=== PATIENT | female | born 1940 | race Caucasian/White ===

== ENCOUNTER 2020-12-11 07:57 | Day surgery (SDC) | payer MEDICARE, OTHER ==
[~2020-12-11] VITALS: Ht 160 cm; Wt 105.0 kg
[~2020-12-11 07:57] MED LIST: AMLO10 PO; CLON.1 PO; Crestor20 MG PO; FURO40 PO; Fluocinonide15 G1 TP; IRBE150 PO; KETO15TC TOP; LIDO5TO TOP; METF500C PO; METO100ER PO; NORT10 PO; NYAMYC15 G2 TOP; TERA5 PO; Triamcinolone A15 G3 TOP; WARF3 PO
--- NOTE | 2020-12-11 12:16 | NUR ---
Pt received from Cindy Montoya RN pt arrived via recliner chair. She is droggy, however; responds to question approriately. 02 at 3 liters per n/c for o2 sat of 94%. Pt is semi reclined with call button within reach. Right radial site wnl pulse palpable. Pt B/p elevated she received medication prior to leaving lab. IV NS with 400 NS HECTOR infusing into left Forearm. FBS 104 in lab at 1143. Lunch will be ordered.
--- NOTE | 2020-12-11 13:45 | NUR ---
TR BAND DEFLATION STARTED. SITE APPEARS SOFT NON TENDER WITH NO BLEEDING OR OOZING NOTED. BAND REMAINS ON ARM, BOARD ON FOR SUPPORT. PT DENIES CP OR SOB. WILL CONTINUE TO MONITOR.
--- NOTE | 2020-12-11 14:36 | NUR ---
TR BAND OFF, RED CLOTH DOT DRESSING APPLIED. ARM BOARD REMAINS ON FOR SUPPORT. SITE SOFT NON TENDER WITH NO BLEEDING NOTED. PT VERBALIZED UNDERSTANDING OF D/C INSTRUCTIONS. PAPERWORK PROVIDED IN FOLDER. IV REMOVED FROM LFA WITH CATH INTACT, PRESSURE DRESSING APPLIED. SON CALLED FOR RIDE HOME.
--- NOTE | 2020-12-11 14:56 | NUR ---
B/p slightly elevated orders received from Dr. Cardoza orders faxed to pharmacy.
--- NOTE | 2020-12-11 15:27 | NUR ---
Pt discharged at 1525 via wheel chair. Informed son Adalberto of limitations of using right hand. Pt verbalized understanding that I gave her the afternoon dose of clonidin. Pt stable upon exit.
== END 2020-12-11 15:16 | disposition home or self-care (01) ==
LOC: MHTC 07:57
DX: R07.89 Other chest pain (principal); I25.10 Atherosclerotic heart disease of native coronary artery without angina pectoris; E11.65 Type 2 diabetes mellitus with hyperglycemia; R93.1 Abnormal findings on diagnostic imaging of heart and coronary circulation; I11.0 Hypertensive heart disease with heart failure; I50.9 Heart failure, unspecified; E78.5 Hyperlipidemia, unspecified; E66.9 Obesity, unspecified; Z86.718 Personal history of other venous thrombosis and embolism; Z79.01 Long term (current) use of anticoagulants; Z79.4 Long term (current) use of insulin; Z68.41 Body mass index [BMI] 40.0-44.9, adult
CPT/HCPCS: 76937; 82947; 85347; 93454; 93571; 93572; 99152; 99153; A9270; C1769; C1887; C1894; J0360; J1644; J2250; J3010; J7030; J7050; Q9967

== ENCOUNTER 2022-03-24 17:24 | Emergency (ER) | payer MEDICARE, OTHER ==
[~2022-03-24] VITALS: Ht 165.1 cm; Wt 103.0 kg
[2022-03-24 19:03] LABS: International Normalized Ratio 3.74
== END 2022-03-24 19:34 | disposition home or self-care (01) ==
LOC: ER 17:24
PROVIDERS: Physician Assistant
DX: S00.83XA Contusion of other part of head, initial encounter (principal); S60.221A Contusion of right hand, initial encounter; S90.31XA Contusion of right foot, initial encounter; S90.121A Contusion of right lesser toe(s) without damage to nail, initial encounter; S00.03XA Contusion of scalp, initial encounter; W18.30XA Fall on same level, unspecified, initial encounter; Z79.01 Long term (current) use of anticoagulants; Z79.899 Other long term (current) drug therapy
CPT/HCPCS: 70450; 73130; 73660; 85610

== ENCOUNTER 2022-04-22 02:12 | Inpatient (IN) | payer MEDICARE, OTHER ==
[~2022-04-22] VITALS: Ht 167.6 cm; Wt 101.9 kg
[~2022-04-22 02:12] MED LIST changes: +Hytrin1 MG PO; -TERA5 PO
[2022-04-22 02:53] LABS: BASOPHILS ABSOLUTE AUTO 0.07 K/mm3 (0.00-0.23); BASOPHILS PERCENT AUTO 0 % (0-2); EOSINOPHILS ABSOLUTE AUTO 0.33 K/mm3 (0.00-0.68); EOSINOPHILS PERCENT AUTO 2 % (0-6); Hematocrit 48.1 % (33.0-51.0); Hemoglobin 15.4 g/dL (11.5-16.0); IMMATURE GRAN ABSOLUTE AUTO 0.07 K/mm3 (0.00-0.10); IMMATURE GRAN PERCENT AUTO 0 % (0-1); LYMPHOCYTES ABSOLUTE AUTO 3.71 K/mm3 (0.84-5.20); LYMPHOCYTES PERCENT AUTO 24 % (21-46); MONOCYTES ABSOLUTE AUTO 0.92 K/mm3 (0.16-1.47); MONOCYTES PERCENT AUTO 6 % (4-13); Mean Corpuscular HGB 28.6 pg (26.0-34.0); Mean Corpuscular Volume 89 fL (80-100); NEUTROPHILS ABSOLUTE AUTO 10.69 K/mm3 (1.96-9.15); NEUTROPHILS PERCENT AUTO 68 % (41-73); Platelet Count 193 K/mm3 (150-400); RDW Coefficient Variation 13.7 % (11.7-14.2); RDW Standard Deviation 44.7 fL (35.1-46.3); Red Blood Cell Count 5.39 M/mm3 (3.80-5.20); White Blood Cell Count 15.79 K/mm3 (4.00-11.30)
[2022-04-22 03:11] LABS: Magnesium, Blood 2.4 mg/dL (1.6-2.4)
[2022-04-22 03:12] LABS: Albumin, Blood 4.1 g/dL (3.4-5.0); Albumin/Globulin Ratio 0.9 (0.8-1.8); Bilirubin, Total 0.5 mg/dL (0.1-1.0); Bun/Creatinine Ratio 17.2 (12.0-20.0); Creatinine, Blood 0.87 mg/dL (0.40-1.00); Globulin, Blood 4.6 g/dL (2.2-4.0); Total Protein, Blood 8.7 g/dL (6.4-8.2)
[2022-04-22 03:18] LABS: Base Excess Venous -5.8 mmol/L; Bicarbonate Venous 19.3 mmol/L (24.0-30.0); PCO2 Venous 47.8 mmHg (38-42); pH Blood Venous 7.26 (7.34-7.37)
[2022-04-22 03:30] LABS: Influenza A, PCR NEGATIVE (NEGATIVE); Influenza B, PCR NEGATIVE (NEGATIVE); Resp Syncytial Virus, PCR NEGATIVE (NEGATIVE); SARS-Cov-2 (COVID-19) PCR, MMC NEGATIVE (NEGATIVE)
[2022-04-22 03:41] LABS: International Normalized Ratio 0.99; Prothrombin Time Results 10.4 Sec (9.7-11.5)
[2022-04-22 06:42] LABS: Bun/Creatinine Ratio 20.4 (12.0-20.0); Calcium, Blood 8.2 mg/dL (8.5-10.1); Creatinine, Blood 0.79 mg/dL (0.40-1.00); Potassium, Blood 4.4 mmol/L (3.5-5.5)
[2022-04-22 07:12] LABS: Base Excess Venous -1.7 mmol/L; Bicarbonate Venous 23.3 mmol/L (24.0-30.0); PCO2 Venous 36.9 mmHg (38-42)
[2022-04-22 07:21] LABS: BASOPHILS ABSOLUTE AUTO 0.03 K/mm3 (0.00-0.23); BASOPHILS PERCENT AUTO 0 % (0-2); EOSINOPHILS ABSOLUTE AUTO 0.01 K/mm3 (0.00-0.68); EOSINOPHILS PERCENT AUTO 0 % (0-6); Hematocrit 41.5 % (33.0-51.0); Hemoglobin 13.6 g/dL (11.5-16.0); IMMATURE GRAN ABSOLUTE AUTO 0.08 K/mm3 (0.00-0.10); IMMATURE GRAN PERCENT AUTO 1 % (0-1); LYMPHOCYTES ABSOLUTE AUTO 0.68 K/mm3 (0.84-5.20); LYMPHOCYTES PERCENT AUTO 5 % (21-46); MONOCYTES PERCENT AUTO 8 % (4-13); Mean Corpuscular HGB 28.3 pg (26.0-34.0); Mean Corpuscular HGB Conc 32.8 g/dL (31.5-36.5); Mean Corpuscular Volume 87 fL (80-100); NEUTROPHILS ABSOLUTE AUTO 11.23 K/mm3 (1.96-9.15); NEUTROPHILS PERCENT AUTO 86 % (41-73); RDW Coefficient Variation 13.5 % (11.7-14.2); RDW Standard Deviation 42.3 fL (35.1-46.3); White Blood Cell Count 13.03 K/mm3 (4.00-11.30)
[2022-04-22 08:07] LABS: Source, Urine Clean Catch
[2022-04-22 08:11] LABS: Appearance, Urine Clear (Clear); Bilirubin, Urine Neg (Neg); Blood, Urine Neg (Neg); Color, Urine Yellow (P-Yellow); Glucose Qualitative, Urine Neg (Neg); Ketones, Urine Neg (Neg); Leukocyte Esterase, Urine Neg (Neg); Nitrite, Urine Neg (Neg); Protein, Urine 1+ (Neg); Specific Gravity, Urine 1.015 (1.003-1.022); Urobilinogen, Urine NORM (Normal)
[2022-04-22] MEDS ORDERED: Isosorbide Mono30 MG PO (10:40)
[2022-04-22] MEDS ORDERED: BASAGLAR K100 UNIT/3 SC (10:41)
[2022-04-22] MEDS ORDERED: GLIP10ER PO (10:42)
[2022-04-22] MEDS ORDERED: MINO10 PO (10:43)
--- NOTE | 2022-04-22 18:11 | NUR ---
Admit Note Received report from ed. Pt to room at approx 0745, 4 person assist with slider sheet. Love catheter placed, ua sent. Pt alert, oriented to person, place and date/time. Pt on bipap on arrival 09/10 70% fio2 bur 10, titrated fio2 to 50%. Placed on 5l o2 via nc this am, for medications and meals, titrated down t/o shift to 2l o2 via nc, ls diminished t/o, tachypnic at times. Tele sinus rhythm 60, bp elevated trending down t/o shift. Edema noted to ble. Abd moderately distended, tender with hypoactive bt t/o, pt reports passing gas, midline scar noted. Other vss t/o, afebrile. Updated given to son's t/o shift. Bruising noted under both eyes, pt states she ran into a door about a month ago which caused the bruising. No other acute changes noted. Will continue to monitor.
--- NOTE | 2022-04-23 06:19 | NUR ---
SHIFT SUMMARY PT ALERT AND ORIENTED. ON 2L OXYGEN SATS OVER 97%. BP STABLE. HR SB/SR 50-60'S W/ BBB. ATTEMPTED BIPAP WHILE SLEEPING. PT ONLY ABLE TO TOLERATE FOR LESS THAN [address] DRAINING [place] COLORED URINE TO GRAVITY. NO C/O DISCOMFORT OR PAIN. IN BED RESTING WITH CALL ALARM AT SIDE, WILL CONTINUE TO MONITOR UNTIL REPORT GIVEN TO DAYSHIFT RN
[2022-04-23 08:32] LABS: Hematocrit 40.5 % (33.0-51.0); Hemoglobin 13.4 g/dL (11.5-16.0); Mean Corpuscular HGB 28.9 pg (26.0-34.0); Mean Corpuscular HGB Conc 33.1 g/dL (31.5-36.5); Mean Corpuscular Volume 88 fL (80-100); Mean Platelet Volume 9.7 fL (9.1-12.4); Platelet Count 194 K/mm3 (150-400); RDW Coefficient Variation 13.8 % (11.7-14.2); RDW Standard Deviation 44.2 fL (35.1-46.3); Red Blood Cell Count 4.63 M/mm3 (3.80-5.20)
[2022-04-23 09:08] LABS: Albumin, Blood 3.5 g/dL (3.4-5.0); Albumin/Globulin Ratio 0.9 (0.8-1.8); Bun/Creatinine Ratio 25.5 (12.0-20.0); Calcium, Blood 9.1 mg/dL (8.5-10.1); Creatinine, Blood 0.82 mg/dL (0.40-1.00); Potassium, Blood 3.7 mmol/L (3.5-5.5); Total Protein, Blood 7.5 g/dL (6.4-8.2)
--- NOTE | 2022-04-23 11:53 | NUR ---
Spiritual care visit conducted. Pt's son and dtr-in-law are present. Pt is tearful at times as she processes the recent news of the of her other son. 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 Pt is greving appropriately and takes time to tell about him and the events that led to his . I provide empathic listeing, grief support and a calming presence to pt and family. All respond well to interventions given and show signs of being comforted.
--- NOTE | 2022-04-23 18:04 | NUR ---
PT REMAINS ON 2L VIA NASAL CANNULA T/O THE DAY WHICH IS TOLERATED WELL. PT WAS ABLE TO WORK WITH PHYSICAL THERAPY TODAY W/O DIFFICULTY. PT REPORTS SOME IMPROVEMENT IN WORK OF BREATHING TODAY. PT ABLE TO TALK IN FULL SENTENCES. VSS. FAMILY WAS IN AND UPDATED HER ABOUT HER SON'S PASSING WHICH WENT WELL. PT WAS MADE MEDICAL STATUS WITH OUT TELE. PT DENIES ANY CHEST PAIN. FAMILY HAS BEEN UPDATED T/O THE DAY. PT WITH GOOD APPETITE. A/O X3. NO FURTHER ACUTE CHANES TO NOTE FOR THIS SHIFT
[2022-04-24 04:05] LABS: Hematocrit 37.4 % (33.0-51.0); Hemoglobin 12.2 g/dL (11.5-16.0); Mean Corpuscular HGB 28.8 pg (26.0-34.0); Mean Corpuscular HGB Conc 32.6 g/dL (31.5-36.5); Mean Corpuscular Volume 88 fL (80-100); Mean Platelet Volume 10.2 fL (9.1-12.4); Platelet Count 184 K/mm3 (150-400); RDW Coefficient Variation 13.6 % (11.7-14.2); RDW Standard Deviation 44.2 fL (35.1-46.3); Red Blood Cell Count 4.24 M/mm3 (3.80-5.20); White Blood Cell Count 6.68 K/mm3 (4.00-11.30)
[2022-04-24 04:30] LABS: Albumin, Blood 3.1 g/dL (3.4-5.0); Albumin/Globulin Ratio 0.9 (0.8-1.8); Bun/Creatinine Ratio 26.8 (12.0-20.0); Calcium, Blood 8.7 mg/dL (8.5-10.1); Creatinine, Blood 0.78 mg/dL (0.40-1.00); Globulin, Blood 3.6 g/dL (2.2-4.0); Potassium, Blood 3.5 mmol/L (3.5-5.5); Total Protein, Blood 6.7 g/dL (6.4-8.2)
--- NOTE | 2022-04-24 05:39 | NUR ---
SHIFT SUMMARY PT ALERT AND ORIENTED X4. BP STABLE. ON 2L SATS OVER 95%. MED NO TELE STATUS. HR 50'S. ASLEEP MOST OF NIGHT. DENIES PAIN OR DISCOMFORT. IN BED SLEEPING WITH CALL ALARM AT SIDE, WILL CONTINUE TO MONITOR UNTIL REPORT GIVEN TO DAYSHIFT RN
--- NOTE | 2022-04-24 18:03 | NUR ---
pt resting in bed, watching tv, denies any complaints or needs, no acute changes this shift. call light in reach.
--- NOTE | 2022-04-25 04:04 | NUR ---
A&0X4. V/S WNL. 02 @ 2LPM VIA NC PER RT. PT'S BP INCREASED/CHANGED TO CORRECT HTN. ADA DIET. EVA AC&MEHDI. BS: 237. 2-ASSIST WITH FWW & GB. GUZMAN CATH IN SITU AND DRAINING LARGE AMOUNTS OF [place] URINE. NO BM THIS SHIFT. WILL CONTINUE TO MONITOR.
[2022-04-25 05:41] LABS: Hematocrit 37.1 % (33.0-51.0); Hemoglobin 12.2 g/dL (11.5-16.0); Mean Corpuscular HGB 28.5 pg (26.0-34.0); Mean Corpuscular HGB Conc 32.9 g/dL (31.5-36.5); Mean Corpuscular Volume 87 fL (80-100); Mean Platelet Volume 10.8 fL (9.1-12.4); Platelet Count 186 K/mm3 (150-400); RDW Coefficient Variation 13.5 % (11.7-14.2); RDW Standard Deviation 42.5 fL (35.1-46.3); Red Blood Cell Count 4.28 M/mm3 (3.80-5.20); White Blood Cell Count 6.44 K/mm3 (4.00-11.30)
[2022-04-25 06:08] LABS: Bun/Creatinine Ratio 32.1 (12.0-20.0); Calcium, Blood 9.3 mg/dL (8.5-10.1); Creatinine, Blood 0.62 mg/dL (0.40-1.00); Potassium, Blood 3.7 mmol/L (3.5-5.5)
--- NOTE | 2022-04-25 08:00 | NUR ---
pt sitting up on the side of the bed eating breakfast, a/ox3, pleasant and cooperative with care, follows commands well, denies pain, lungs are dim t/o, on r/a at this time sats are 93%, no cough noted, resp even and unlabored, hrr, no edema noted, ppp+1, cap refill<3sec, vs stable, afebrile, iv site to lac is clear and patent, btx4, abd flat soft nontender, voids via lehman cath at this time, skin c/w/d, does have bruising around both eyes secondary to a fall at home, nathalie cesar, call light in reach.
--- NOTE | 2022-04-25 09:51 | NUR ---
will hold metoprolol this am per Dr. Salazar due to heart rate running in the high 50s. will be discharged to home today. call light in reach.
[2022-04-25] MEDS ORDERED: METO25 PO (10:24)
--- NOTE | 2022-04-25 14:39 | NUR ---
Pt has been discharged to home, went over discharge instructions with her, she verbalized understanding, iv's removed intact, new meds faxed to pharmacy. left with all her belongings via wheelchair with lecturer of portuguese in attendence.
== END 2022-04-25 14:37 | disposition home or self-care (01) | DRG 291 ==
LOC: ER 02:12 → PCU 05:12 → ERHOLD 05:12 → PCU 07:51 → MEDS 04-24 15:00
PROVIDERS: Emergency Medicine; Family Medicine; Internal Medicine; ADMIT Family Medicine
PROC: 5A09357 Assistance with Respiratory Ventilation, Less than 24 Consecutive Hours, Continuous Positive Airway Pressure (ICD-10-PCS; principal; 2022-04-22)
DX: I11.0 Hypertensive heart disease with heart failure (principal); I50.23 Acute on chronic systolic (congestive) heart failure; J96.01 Acute respiratory failure with hypoxia; J96.02 Acute respiratory failure with hypercapnia; E87.2 Acidosis; I16.1 Hypertensive emergency; Z20.822 Contact with and (suspected) exposure to COVID-19; I51.81 Takotsubo syndrome; D72.828 Other elevated white blood cell count; E11.9 Type 2 diabetes mellitus without complications; E66.9 Obesity, unspecified; I25.10 Atherosclerotic heart disease of native coronary artery without angina pectoris; R00.1 Bradycardia, unspecified; T44.7X5A Adverse effect of beta-adrenoreceptor antagonists, initial encounter; Z68.36 Body mass index [BMI] 36.0-36.9, adult; Z91.14 Patient's other noncompliance with medication regimen; Z79.4 Long term (current) use of insulin; Z79.899 Other long term (current) drug therapy
CPT/HCPCS: 0241U; 36415; 71045; 80048; 80053; 82803; 82947; 83605; 83735; 83880; 84145; 84484; 85025; 85027; 85610; 87040; 93005; 93010; 93306; 94660; 94760; 94761; 94762; 96365; 96368; 96375; 97110; 97116; 97162; 99291-25; A9270; J1650; J1815; J1940; J2060; J3475

== ENCOUNTER 2023-04-21 13:16 | Inpatient (IN) | payer MEDICARE, OTHER ==
[~2023-04-21] VITALS: Ht 160 cm; Wt 98.2 kg
[~2023-04-21 13:16] MED LIST changes: +BASAGLAR K100 UNIT/3 SC; +GLIP10ER PO; +Isosorbide Mono30 MG PO; +METO25 PO; +MINO10 PO
[2023-04-21 13:35] LABS: Calcium, Ionized (POC) 1.22 mmol/L (1.10-1.46); Chloride (POC) 110 mmol/L (98-108); Creatinine (POC) 1.2 mg/dL (0.6-1.0); Glucose (ISTAT POC) 364 mg/dL (70-99); Potassium (POC) 4.9 mmol/L (3.5-5.5); Sodium (POC) 139 mmol/L (135-148); Total CO2 (POC) 16 mmol/L (21-32)
[2023-04-21 13:42] LABS: BASOPHILS ABSOLUTE AUTO 0.04 K/mm3 (0.00-0.23); BASOPHILS PERCENT AUTO 0 % (0-2); EOSINOPHILS PERCENT AUTO 0 % (0-6); Hematocrit 42.9 % (33.0-51.0); IMMATURE GRAN ABSOLUTE AUTO 0.13 K/mm3 (0.00-0.10); IMMATURE GRAN PERCENT AUTO 1 % (0-1); LYMPHOCYTES ABSOLUTE AUTO 2.16 K/mm3 (0.84-5.20); LYMPHOCYTES PERCENT AUTO 12 % (21-46); MONOCYTES ABSOLUTE AUTO 1.32 K/mm3 (0.16-1.47); MONOCYTES PERCENT AUTO 7 % (4-13); Mean Corpuscular HGB 28.2 pg (26.0-34.0); Mean Corpuscular HGB Conc 32.6 g/dL (31.5-36.5); Mean Corpuscular Volume 87 fL (80-100); Mean Platelet Volume 10.2 fL (9.1-12.4); NEUTROPHILS ABSOLUTE AUTO 15.14 K/mm3 (1.96-9.15); NEUTROPHILS PERCENT AUTO 81 % (41-73); Platelet Count 270 K/mm3 (150-400); RDW Coefficient Variation 13.7 % (11.7-14.2); RDW Standard Deviation 42.6 fL (35.1-46.3); Red Blood Cell Count 4.96 M/mm3 (3.80-5.20); White Blood Cell Count 18.79 K/mm3 (4.00-11.30)
[2023-04-21 14:36] LABS: Alanine Aminotransfer (ALT/SGP 39 U/L (12-78); Albumin, Blood 3.5 g/dL (3.4-5.0); Albumin/Globulin Ratio 0.8 (0.8-1.8); Alk Phos 76 U/L (50-136); Anion Gap 13 mmol/L (6-16); Aspartate Aminotrans (AST/SGOT 30 U/L (12-37); Bilirubin, Total 0.4 mg/dL (0.1-1.0); Blood Urea Nitrogen 26 mg/dL (8-24); CO2, Blood 16 mmol/L (21-32); Chloride, Blood 111 mmol/L (98-108); Creatinine, Blood 1.13 mg/dL (0.40-1.00); Globulin, Blood 4.3 g/dL (2.2-4.0); Glomerular Filtration Rate 49 (60-); Glucose, Blood 365 mg/dL (70-99); Sodium, Blood 140 mmol/L (136-145); Total Protein, Blood 7.8 g/dL (6.4-8.2)
[2023-04-21 16:58] LABS: Base Excess Venous -7.6 mmol/L; Bicarbonate Venous 18.1 mmol/L (24.0-30.0); PCO2 Venous 42.1 mmHg (38-42); pH Blood Venous 7.27 (7.34-7.37)
[2023-04-21 18:24] LABS: Source, Urine Straight Cath
[2023-04-21 18:27] LABS: Anti-Xa UFH, PHA Monitoring <0.10 IU/mL; Prothrombin Time Results 78.3 Sec (9.7-11.5)
[2023-04-21 18:47] LABS: International Normalized Ratio 8.41
[2023-04-21 19:09] LABS: Appearance, Urine Hazy (Clear); Bilirubin, Urine Neg (Neg); Blood, Urine 2+ (Neg); Color, Urine Yellow (P-Yellow); Glucose Qualitative, Urine Neg (Neg); Ketones, Urine Neg (Neg); Leukocyte Esterase, Urine Neg (Neg); Nitrite, Urine Neg (Neg); Protein, Urine 1+ (Neg); Specific Gravity, Urine 1.025 (1.003-1.022); Urobilinogen, Urine NORM (Normal)
[2023-04-21 19:42] LABS: Hyaline Casts 25-50 /lpf (0-2)
[2023-04-21 19:43] LABS: Bacteria Few /hpf; Squamous Epithelial Cells Rare /hpf (Few); White Blood Cells, Urine 0-2 /hpf (0-5)
[2023-04-21 19:48] LABS: Influenza A, PCR NEGATIVE (NEGATIVE); Influenza B, PCR NEGATIVE (NEGATIVE); Resp Syncytial Virus, PCR NEGATIVE (NEGATIVE); SARS-Cov-2 (COVID-19) PCR, MMC NEGATIVE (NEGATIVE)
[2023-04-21 20:07] VITALS: BP 169/105
[2023-04-21 21:00] VITALS: BP 152/101
[2023-04-21 21:03] LABS: Hematocrit 41.5 % (33.0-51.0); Hemoglobin 13.9 g/dL (11.5-16.0)
[2023-04-21 21:30] VITALS: BP 139/99
[2023-04-21 23:16] VITALS: BP 157/101
--- NOTE | 2023-04-21 23:26 | NUR ---
TRANSFER/UPDATE NOTE THIS RN RECEIVED REPORT FROM LEOLA RENNER IN THE ED VIA PHONE. PT TRANSFERRED TO PCU. PT SWITCHED FROM BIPAP TO CPAP SHORTLY AFTER ARRIVAL. PT WITH RESPIRATION RATE 30'S. HTN NOTED; SBP 140-160'S SINCE ARRIVAL. SPO2 >90% ON CURRENT CPAP SETTINGS. PT WITH TEMPORAL TEMP 96.5-96.7; RECTAL TEMP OF 101.4. EXTREMETIES PALE AND COLD. WHEEZES NOTED IN UPPER LOBES AT TIME OF ADMISSION WITH DIMINISHED LS T/O. CALL PLACED TO MD HERNANDEZ REGARDING CRITICAL LABS. MD HERNANDEZ TO BEDSIDE AT 2300 TO EVALUATE PT D/T LAB RESULTS. PT PRESENTING WITH COARSE LS TO THIS RN AND GOODYEAR WELTER JEANNIE PRIOR TO MD HERNANDEZ ASSESSMENT. MD HERNANDEZ ASSESSED PT AND VERBALIZED ORDERS FOR LR AT 200MLS X1L. MD HERNANDEZ VERBALIZED FOR THIS RN TO CALL AFTER 2HRS OF INFUSION TO DETERMINE WHETHER PT IS TOLERATING FLUIDS. PT WITH 120MLS OF RED COLORED URINE IN PUREWICK CANNISTER. MINIMAL BLOOD NOTED IN JOYCE AREA; UNCLEAR IF ORIGINATING FROM VAGINA OR URETHRA AT THIS TIME. MD BAUMANN. HGB STABLE; WILL CONTINUE TO MONITOR. PPP. BS+. PT ALERT AND ORIENTED FULLY. ABLE TO MAKE NEEDS KNOWN. BED IN LOWEST POSITION AND CALL LIGHT WITHIN REACH.
[2023-04-22] VITALS (7 sets, daily range): BP systolic 146–171; BP diastolic 93–105
[2023-04-22 02:37] LABS: Free Thyroxine 1.18 ng/dL (0.70-1.60)
[2023-04-22 02:40] LABS: Thyroid Stimulating Hormone 2.35 uIU/mL (0.360-4.800)
[2023-04-22 02:41] LABS: Albumin, Blood 3.4 g/dL (3.4-5.0); Albumin/Globulin Ratio 0.8 (0.8-1.8); Bilirubin, Total 0.4 mg/dL (0.1-1.0); Bun/Creatinine Ratio 32.3 (12.0-20.0); Calcium, Blood 9.1 mg/dL (8.5-10.1); Creatinine, Blood 1.27 mg/dL (0.40-1.00); Potassium, Blood 4.9 mmol/L (3.5-5.5); Total Protein, Blood 7.4 g/dL (6.4-8.2)
[2023-04-22 02:47] LABS: BASOPHILS ABSOLUTE AUTO 0.02 K/mm3 (0.00-0.23); BASOPHILS PERCENT AUTO 0 % (0-2); EOSINOPHILS PERCENT AUTO 0 % (0-6); Hematocrit 38.9 % (33.0-51.0); Hemoglobin 13.4 g/dL (11.5-16.0); IMMATURE GRAN ABSOLUTE AUTO 0.16 K/mm3 (0.00-0.10); IMMATURE GRAN PERCENT AUTO 1 % (0-1); LYMPHOCYTES ABSOLUTE AUTO 0.78 K/mm3 (0.84-5.20); LYMPHOCYTES PERCENT AUTO 5 % (21-46); MONOCYTES ABSOLUTE AUTO 1.13 K/mm3 (0.16-1.47); MONOCYTES PERCENT AUTO 7 % (4-13); Mean Corpuscular HGB 28.6 pg (26.0-34.0); Mean Corpuscular HGB Conc 34.4 g/dL (31.5-36.5); Mean Corpuscular Volume 83 fL (80-100); Mean Platelet Volume 10.5 fL (9.1-12.4); NEUTROPHILS ABSOLUTE AUTO 15.05 K/mm3 (1.96-9.15); NEUTROPHILS PERCENT AUTO 88 % (41-73); Platelet Count 250 K/mm3 (150-400); RDW Coefficient Variation 13.9 % (11.7-14.2); RDW Standard Deviation 41.5 fL (35.1-46.3); Red Blood Cell Count 4.69 M/mm3 (3.80-5.20); White Blood Cell Count 17.14 K/mm3 (4.00-11.30)
[2023-04-22 02:49] LABS: Prothrombin Time Results >90.0 Sec (9.7-11.5)
[2023-04-22 02:52] LABS: International Normalized Ratio >10.00
--- NOTE | 2023-04-22 02:56 | NUR ---
PATIENT UPDATE SEE PREVIOUS NOTE. LR INFUSING FOR 2HRS WITH 400MLS INFUSED, THIS RN NOTES CRACKLES T/O WITH LUNG AUSCULTATION. CALL PLACED TO MD HERNANDEZ. MD HERNANDEZ WITH ORDERS TO STOP FLUIDS. ORDER FOR REPEAT LACTIC ACID FOR 0200. CALL PLACED TO MD HERNANDEZ REGARDING RESULTS OF LACTIC ACID AT 0245. NO NEW ORDERS AT THIS TIME. NO CHANGES ACUTE CHANGES TO PATIENT STATUS OR VITALS AT THIS TIME. WILL CONTINUE TO MONITOR.
--- NOTE | 2023-04-22 04:50 | NUR ---
SHIFT SUMMARY SEE PREVIOUS NOTES AND ASSESSMENT. VITAMIN K INFUSED PER EMAR AFTER CRITICAL INR. NO FURTHER SIGNS OF BLOOD NOTED IN JOYCE AREA. SBP 150'S AT THIS TIME. ST WITH HR 100-110'S. SPO2 >90% ON CPAP. PT TOLERATING FAIRLY WELL. OCCASIONAL BREAKS GIVEN. PT QUICKLY BEGINS TO DESAT TO THE 80'S WITHOUT CPAP. PT EDUCATED ON NEED FOR MASK. CONTINUES TO BE A&O X4. DYSPNEIC WITH CONVERSATION. CAN ANSWER SIMPLE QUESTIONS D/T DYSPNEA. TACHYPNEA NOTED WITH RR 25-35. REPOSITIONING Q2HRS. PUREWICK IN PLACE. IGNITION SAFETY/RISK ASSESSMENT AND EDUCATION COMPLETE. BED IN LOWEST POSITION AND CALL LIGHT WITHIN REACH. THIS RN WILL CONTINUE TO MONITOR UNTIL SHIFT CHANGE AT 0700.
[2023-04-22] MEDS ORDERED: METO100ER PO (06:19)
[2023-04-22] MEDS ORDERED: SPIRONOLACTONE25 MG PO (06:21)
[2023-04-22 09:10] LABS: International Normalized Ratio 2.35
[2023-04-22 09:42] LABS: Prothrombin Time Results 23.5 Sec (9.7-11.5)
[2023-04-22 11:33] LABS: Base Excess Venous -6.5 mmol/L; Bicarbonate Venous 19.9 mmol/L (24.0-30.0); PCO2 Venous 30.7 mmHg (38-42); pH Blood Venous 7.39 (7.34-7.37)
[2023-04-22 15:39] LABS: International Normalized Ratio 1.54
--- NOTE | 2023-04-22 15:55 | NUR ---
UPDATE UPON CARE ASSUMPTION, PT SLEEPING, WAKING TO VERBAL STIMULATION W/ TOUCH. PT QUICKLY RETURNING BACK TO SLEEP, REQUIRING REAWAKENING FOR ASSESSMENT Qs & CARE. PT BP ELEVATED. RR 20s-30s W/ SPO2 > 90% ON CPAP. RT TO FOR ATTEMPT TO TRANSITION PT TO NC FOR ST EVEAL. 6L NC APPLIED W/ PT DESATING. RT THEN W/ VENTURI MASK @ 10L D/T PT MOUTH BREATHING. PT THEN TRANSITIONED BACK TO CPAP. PT NPO, AWAITING ST EVAL, BUT PT UNABLE TO TOLERATE BEING OFF CPAP. MD TRIPATHI W/ ORDER FOR PRN IV LOPRESSOR WHILE PT UNABLE TO TAKE PO MEDICATIONS & REPEAT VBG. REPEAT VBG DONE. PT SLEEPING MAJORITY OF DAY. PT NOW AWAKE W/ REQUEST TO GET UP IN CHAIR. LIFT SHEET PLACED & CEILING LIFT USED TO TRANSFER PT FROM BED TO CHAIR. PT SITTING UPRIGHT, TOLERATING CPAP. RR REMAINS 20s-30s. PT INCONTINENT, PUREWICK IN PLACE FOR MORE ACCURATE I/O.
[2023-04-22 16:28] LABS: Prothrombin Time Results 15.8 Sec (9.7-11.5)
--- NOTE | 2023-04-22 18:51 | NUR ---
END OF SHIFT PT REMAINS ON CPAP. PT MORE AWAKE THIS EVENING. BP CONTINUES TO BE ELEVATED. PRN IV LOPRESSOR GIVEN PER EMAR X1 THIS SHIFT. PT W/ LOW URINE OUTPUT. PUREWICK IN PLACE. PT UP IN RECLINER CHAIR W/ LEGS ELEVATED. FIRE IGNITION RISK ASSESSMENT/EDUCATION COMPLETE.
[2023-04-23 00:29] VITALS: BP 176/114
[2023-04-23 01:02] VITALS: BP 159/92
[2023-04-23 03:21] LABS: BASOPHILS ABSOLUTE AUTO 0.03 K/mm3 (0.00-0.23); BASOPHILS PERCENT AUTO 0 % (0-2); EOSINOPHILS PERCENT AUTO 0 % (0-6); Hematocrit 40.7 % (33.0-51.0); Hemoglobin 13.4 g/dL (11.5-16.0); IMMATURE GRAN PERCENT AUTO 1 % (0-1); LYMPHOCYTES ABSOLUTE AUTO 1.58 K/mm3 (0.84-5.20); LYMPHOCYTES PERCENT AUTO 8 % (21-46); MONOCYTES ABSOLUTE AUTO 1.29 K/mm3 (0.16-1.47); MONOCYTES PERCENT AUTO 7 % (4-13); Mean Corpuscular HGB 28.3 pg (26.0-34.0); Mean Corpuscular HGB Conc 32.9 g/dL (31.5-36.5); Mean Corpuscular Volume 86 fL (80-100); Mean Platelet Volume 10.3 fL (9.1-12.4); NEUTROPHILS ABSOLUTE AUTO 16.55 K/mm3 (1.96-9.15); NEUTROPHILS PERCENT AUTO 84 % (41-73); Platelet Count 252 K/mm3 (150-400); RDW Coefficient Variation 14.2 % (11.7-14.2); RDW Standard Deviation 44.9 fL (35.1-46.3); Red Blood Cell Count 4.74 M/mm3 (3.80-5.20); White Blood Cell Count 19.65 K/mm3 (4.00-11.30)
[2023-04-23 03:35] LABS: Anti-Xa UFH, PHA Monitoring 0.56 IU/mL; International Normalized Ratio 1.14; Prothrombin Time Results 11.9 Sec (9.7-11.5)
[2023-04-23 03:40] LABS: Albumin, Blood 3.5 g/dL (3.4-5.0); Albumin/Globulin Ratio 0.8 (0.8-1.8); Bilirubin, Total 0.6 mg/dL (0.1-1.0); Bun/Creatinine Ratio 38.1 (12.0-20.0); Calcium, Blood 9.2 mg/dL (8.5-10.1); Creatinine, Blood 1.26 mg/dL (0.40-1.00); Globulin, Blood 4.3 g/dL (2.2-4.0); Potassium, Blood 4.2 mmol/L (3.5-5.5); Total Protein, Blood 7.8 g/dL (6.4-8.2)
[2023-04-23 04:04] VITALS: BP 154/91
--- NOTE | 2023-04-23 04:55 | NUR ---
SHIFT SUMMARY THIS RN ASSUMED CARE OF PATIENT AT 1900. PATIENT AWAKE FOR MOST OF THIS SHIFT WITH PERIODS OF LETHARGY. PT CONTINUES TO BE CPAP DEPENDENT. NO CHANGES TO SETTINGS. PT REQUIRING 10-13L VIA MASK WHILE TAKING BREAKS FROM CPAP. PT IS ABLE TO MAINTAIN SPO2 WITH REG MASK ON, HOWEVER, WORK OF BREATHING DOES INCREASE AFTER 5-10 MINUTES AND PT BEGINS TO FALL ASLEEP AND STATES "I'M TIRED NOW", AND IS PLACED BACK ON CPAP. ST ON MONITOR WITH HR 110-120'S. AFEBRILE. RR 20-24. BP STABLE, SBP 150'S AT THIS TIME, MEDICATING PER EMAR FOR HTN. REPOSITIONING Q2HRS. THIS RN SPOKE TO ARLEY YOUNG ON THE PHONE REGARDING BRINGING MEDICATIONS IN FOR AN UPDATED MED REC DURING THE DAY. FIRE RISK/SAFETY ASSESSMENT AND EDUCATION COMPLETED. BED IN LOWEST POSITION AND CALL LIGHT WITHIN REACH. THIS RN WILL CONTINUE TO MONITOR UNTIL SHIFT CHANGE AT 0700.
[2023-04-23 09:44] VITALS: BP 161/71
--- NOTE | 2023-04-23 10:17 | NUR ---
DURING MORNING ASSESSMENT PT IS PULLING OFF CPAP MASK, HER SPO2 IS DROPPING INTO THE LOW 70s. MASK IS REPLACED. PT EXPRESSED THAT SHE DOES NOT WANT TO WEAR THE MASK ANY LONGER. PT IS EDUCATED ABOUT WHY IT IS IMPORTANT TO KEEP IT IN PLACE. PT EXPRESSED THAT SHE NO LONGER WISHES TO BE A FULL CODE OR RECIEVE FULL CARE. PALLIATIVE CARE IS CALLED THEY ARRIVE QUICKLY, PT ALSO EXPRESSED TO THEM THAT SHE WOULD LIKE TO WITHDRAW CARE, SHE IS ALERT ORIENTED AND AWARE OF THE CIRCUMSTANCES. DR SOUSA TO ROOM PT ALSO TOLD HIM OF HER WISHES TO WITHDRAW CARE. SONS ARE UPDATED WHICH AGREE WITH HER WISHES. PT ASKED ABOUT EMDICATIONS THAT SHE WOULD LIKE TO RECIEVE, PT REFUSES ANY COMFORT MEDS AT THIS TIME, SHE ALSO REFUSES NASAL CANNULA. CPAP WAS REMOVED, PT PROVIDED WITH WATER NOW THAT COMFORT ORDERS HAVE BEEN PLACED. SPO2 QUICKLY DROPS TO THE LOW 70s WHERE IT IS MAINTAINING AT THIS TIME. SONS ARE CALLED AND NOTIFIED THAT SHE WOULD LIKE THEM TO COME IN
--- NOTE | 2023-04-23 10:33 | NUR ---
Initial palliative care consult: Called by nursing this morning at 0845 due to pt expressing to staff that she no longer wants to wear her CPAP mask. Entered room to meet with Rosita. Rosita is A/O x4. Discussed the reason for CPAP mask. She reports that she doesn't want to wear it. She also states she doesn't want any more treatments. Explained that she will likely pass away without the CPAP and treatments. She nodded her head yes and gave a thumbs up. Discussed a DNR status and the option of comfort care. Rosita verbalizes wanting to be a DNR and to transition to comfort care. Updated nursing and the residents. Spoke with Dr. Noble. Dr. Noble joined this RN at the bedside and pt again verbalized her wishes of DNR/comfort care. Dr. Noble discussed the echo results with pt. She remains A/O during conversation with Dr. Noble. Dr. Noble requested that this contract technical writer contact pt's sons. Called and spoke with Adalberto, pt's son who she lives with. Adalberto describes Rosita as "stubborn." Explained her desire to transition to DNR and comfort care. Adalberto verbalized his agreement with following Rosita's wishes. Adalberto requested that I speak with Rosita's son, Georgi, in [place]. Called Georgi and relayed an update and Rosita's desire to transition to comfort care. Georgi also agrees with following Rosita's wishes. Georgi has questions about hospice and discharge. Georgi is planning to drive from [place] tomorrow morning. Explained to Georgi that it is possible that Rosita may pass away prior to tomorrow morning. Explained to Georgi that if Rosita declines rapidly she may not discharge home. If hospice needs to be arranged, CM will work with family for a discharge plan. Returned to [facility] room. Updated Dr. Noble on son's wishes to respect Rosita's choice for DNR and comfort care. Placed comfort care orders per verbal order per Dr. Noble. Pt states that she doesn't want to take any antibiotics or any of her other medications. Dr. Noble requests to leave IV lasix as an active order. Comfort meds ordered. Returned to [place] beside. She is sitting up in bed, drinking water. She requests that this contract technical writer call her son Adalberto and have him come in. Spoke with Adalberto who states he will be driving in to see her. Adalberto reports that he spoke with Georgi and that Georgi is driving down from [place] today instead of tomorrow. Rosita updated. PC to remain available.
--- NOTE | 2023-04-23 11:27 | NUR ---
"Spiritual Care | Palliative Care Nurse referral Pt. is awake in bed and cautiously welcomes my visit. Pt. has recently been placed on comfort care, but is alert and waiting for her sons to visit. While Pt. remained gaurded I facilitated a brief life review and listened with empathy and a calming presence. Pt. verbalized gratitude for the spiritual care visit and welcomed this watch and clock repair clerk to return."
--- NOTE | 2023-04-23 11:30 | NUR ---
Returned to Rosita's room to check on her. She is currently sitting up in bed watching TV. Adalberto her son is at the bedside. No distress noted. Neither Rosiat or Adalberto have any questions at this time. Spoke with nursing. PC to continue to remain available.
--- NOTE | 2023-04-23 16:03 | NUR ---
REPORT TO CHAPINCITO RENNER ON SURGICAL FLOOR
--- NOTE | 2023-04-23 16:22 | NUR ---
THIS NURSE ASSUMED CARE AT THIS TIME AFTER GETTING REPORT FROM SEBASTIAN RENENR. PATIENT IS LAYING IN BED WITH CALL LIGHT IN REACH.
--- NOTE | 2023-04-23 16:41 | NUR ---
PATIENT AND PATIENTS SON WERE EDUCATED ON IGNITION SOURCES AND RISK OF INJURY WITH OXYGEN IN USE. PATIENT AND SON BOTH VERBALIZED UNDERSTANDING OF EDUCATION AND HAD NO FURTHER QUESTIONS AT THIS TIME.
--- NOTE | 2023-04-24 06:03 | NUR ---
SHIFT SUMMARY PT HAS RESTED A GOOD PORITION OF THE NIGHT, PT A/OX4 AND IS ABLE TO MAKE NEEDS KNOWN. PT COMFORT MEASURES ONLY, COMFORT HAS BEEN ASSESSED T/O SHIFT. PT REPORTS ABD PAIN THAT IS RELIEVED WITH TYLENOL WHICH PT TOOK WITHOUT DIFFICULTY, ASP PRECAUTIONS MAINTAINED. DIET IS ADVANCE TOLERATED, PT HAS BEEN TAKING IN SMALL AMOUNTS OF FLUIDS, BUT REPORTS AN OVERALL DECREASE IN APPETITE. PT REPORTS SOME SOB, LUNG SOUNDS DIM. PT REFUSES OXYGEN. PUREWICK IN PLACE AND PT IS VOIDING. NO CALLS OR VISITS FROM FAMILY THIS SHIFT. FIRE RISK ASSESSED THIS SHIFT, PT EDUCATED ON FIRE RISK AND DENIES HAVING IGNITION SOURCES. BED IN LOWEST POSITION, CALL LIGHT WITHIN REACH.
--- NOTE | 2023-04-24 10:13 | NUR ---
SONS AT BEDSIDE, WILL AND ALUMINUM HYDROXIDE PROCESS OPERATOR'S LICENSE GIVEN TO SONS. BLOOD TESTER NOTIFIED PT FAMILY AT BEDSIDE WITH QUESTIONS.
--- NOTE | 2023-04-24 18:38 | NUR ---
SHIFT SUMMARY PT A&OX4, VSS/RA, NAMRATA PO - ATE MORE DINNER THAN HAS BEEN EATING AT MEALS, PUREWICK WITH 400 MLS OUT THIS SHIFT, DENIES PAIN/NEED FOR PAIN MEDICINE, REPOSITIONED AND KEPT COMFORTABLE T/O SHIFT. WILL REPORT TO ONCMARY RIVERA RN.
--- NOTE | 2023-04-25 04:20 | NUR ---
SHIFT SUMMARY NO ACUTE CHANGES TO REPORT OVERNIGHT, PT HAS RESTED MOST OF THE NIGHT, PT DENIES PAIN MOST OF THE NIGHT. SHE DECLINED ANYTHING FOR PAIN WHEN OFFERED AT THE BEGINNING OF THE SHIFT WHEN SHE COMPLAINED OF 5/10 ABD PAIN. PT LESS ANXIOUS THIS SHIFT, AND APPEARS MORE RELAXED AND COMFORTABLE. PT DECLINES REPOSITIONING T/O SHIFT AND PREFERS TO LAY ON HER BACK. PUREWICK IN PLACE AND IS DRAINING. NO CALLS OR VISITS FROM FAMILY. COMFORT ASSESSED T/O SHIFT. BED IN LOWEST POSITION, CALL LIGHT WITHIN REACH.
--- NOTE | 2023-04-25 04:24 | NUR ---
FIRE RISK ASSESSED THIS SHIFT, PT EDUCATED ON FIRE RISKS AND IGNITION SOURCES. PT DENIES HAVING IGNITION SOURCES.
--- NOTE | 2023-04-25 04:55 | NUR ---
FIRE RISK ASSESSED THIS SHIFT, PT EDUCATED ON FIRE RISK AND IGNITION SOURCES, PT DENIES HAVING IGNITION SOURCES.
--- NOTE | 2023-04-25 15:53 | NUR ---
SHIFT SUMMARY PT A&OX4, VSS/RA >92%, NAMRATA PO FLD-DYSPHAGIA PRECAUTIONS/SET UP ASSIST, VOIDING/PUREWICK IN PLACE, DENIES PAIN, STAND PIVOT WITH FWW/GB 2 PP TO BSC/ CHAIR/BED. WILL REPORT TO ONCOMING NOC RN.
--- NOTE | 2023-04-26 05:20 | NUR ---
SHIFT SUMMARY PT A&OX3, AND COOPERATIVE WITH CARE. NO ACUTE CHANGES. PT REQUIRED NO PAIN COVERAGE THIS SHIFT. VOIDING WITH PUREWICK, ATTENDS IN PLACE BACKUP. 2-ASSIST FOR AMBULATION. CALLS APPROPRIATELY, CALL LIGHT WITHIN REACH.
--- NOTE | 2023-04-26 18:16 | NUR ---
SHIFT SUMMARY PT HAS BEEN SITTING UP IN BED, SHE USES HER CALL LIGHT APPROPRIATLY AND WILL MAKE HER NEEDS MET. TAYO IN T/O SHIFT. TOLERATING PO INTAKE WELL. PT DENIES PAIN OR SOB. HELPS WITH REPOSITIONING. PLAN IS FOR PATIENT TO DISCHARGE HOME ON HOSPICE TOMORROW.
--- NOTE | 2023-04-27 05:18 | NUR ---
SHIFT SUMMARY PT A&OX4 AND COOPERATIVE WITH CARE. NO ACUTE CHANGES. RESTED MAJORITY OF SHIFT. TOLERATING PO INTAKE. VOIDING WITH PUREWICK. 2-ASSIST FOR AMBULATION. CALLS APPROPRIATELY, CALL LIGHT WITHIN REACH.
--- NOTE | 2023-04-27 09:44 | NUR ---
Spiritual Care Visit. Pt. is sitting up in bed when she welcomes my visit. Pt. is pleasant but displays evidence of being downcast. Pt. verbalized that she had concerns about her son being able to care for her whenever she discharges to home. Listen with ampathy and calming presence. Though Pt. is on comfort care, Pt. displays evidence of being alert and engages in conservation with understanding and clarity. Prayed with Pt. Pt. verbalized gratitude for the spiritual care visit.
--- NOTE | 2023-04-27 11:22 | NUR ---
discharge PT LEFT VIA GURNEY. ALL BELONGINGS WITH PATIENT. DISCHARGING TO [facility]. PRESCRIPTIONS SENT IN PACKET WITH TRANSPORT. PT CONTINUES TO BE ORIENTED X3/4 MOMENTS OF CONFUSION. USING PUREWICK AT HOSPITAL, DEPENDS IN PLACE FOR TRANSPORT. PT LOOKING FORWARD TO GOING HOME WITH SON AT THIS TIME. IV'S REMOVED WNL.
== END 2023-04-27 11:15 | disposition hospice, home (50) | DRG 871 ==
LOC: ER 13:16 → PCU 13:17 → SURS 04-23 16:10
PROVIDERS: Emergency Medicine; Family Medicine; Internal Medicine; ADMIT Internal Medicine
PROC: 5A09357 Assistance with Respiratory Ventilation, Less than 24 Consecutive Hours, Continuous Positive Airway Pressure (ICD-10-PCS; principal; 2023-04-21)
PROC: 3E03329 Introduction of Other Anti-infective into Peripheral Vein, Percutaneous Approach (ICD-10-PCS; 2023-04-21)
PROC: 5A09357 Assistance with Respiratory Ventilation, Less than 24 Consecutive Hours, Continuous Positive Airway Pressure (ICD-10-PCS; 2023-04-21)
DX: A41.9 Sepsis, unspecified organism (principal); I21.4 Non-ST elevation (NSTEMI) myocardial infarction; I50.23 Acute on chronic systolic (congestive) heart failure; J96.01 Acute respiratory failure with hypoxia; J18.9 Pneumonia, unspecified organism; E87.21 Acute metabolic acidosis; N17.9 Acute kidney failure, unspecified; Z51.5 Encounter for palliative care; Z66 Do not resuscitate; Z20.822 Contact with and (suspected) exposure to COVID-19; R65.20 Severe sepsis without septic shock; I11.0 Hypertensive heart disease with heart failure; E11.9 Type 2 diabetes mellitus without complications; I48.0 Paroxysmal atrial fibrillation; E78.5 Hyperlipidemia, unspecified; E66.9 Obesity, unspecified; I35.1 Nonrheumatic aortic (valve) insufficiency; I34.0 Nonrheumatic mitral (valve) insufficiency; I07.1 Rheumatic tricuspid insufficiency; I27.20 Pulmonary hypertension, unspecified; R33.9 Retention of urine, unspecified; I25.10 Atherosclerotic heart disease of native coronary artery without angina pectoris; Z79.4 Long term (current) use of insulin; Z79.899 Other long term (current) drug therapy; Z79.01 Long term (current) use of anticoagulants; Z90.49 Acquired absence of other specified parts of digestive tract; Z68.39 Body mass index [BMI] 39.0-39.9, adult
CPT/HCPCS: 0241U; 36415; 71045; 80047; 80053; 81001; 82803; 82947; 83605; 83880; 84145; 84439; 84443; 84484; 85014; 85018; 85025; 85520; 85610; 85730; 87040; 93005; 93010; 94660; 94760; 94762; 96365; 96367; 96375; 99285-25; A9270; C8929; G0378; J0360; J0456; J0696; J1644; J1815; J1940; J2405; J3430; J7050; J7120; Q9957